=== PATIENT | female | born 1960 | race Caucasian/White ===

== ENCOUNTER 2018-06-12 10:29 | Emergency (ER) | payer OTHER ==
[~2018-06-12] VITALS: Ht 152.4 cm; Wt 70.8 kg
== END 2018-06-12 16:51 | disposition home or self-care (01) ==
LOC: ER 10:29
DX: S92.151A Displaced avulsion fracture (chip fracture) of right talus, initial encounter for closed fracture (principal); X50.3XXA Overexertion from repetitive movements, initial encounter; Y93.89 Activity, other specified; Y92.89 Other specified places as the place of occurrence of the external cause; Y99.8 Other external cause status